=== PATIENT | female | born 1960 | race Hispanic/Latino ===

== ENCOUNTER 2024-04-13 18:48 | Emergency (ER) | payer OTHER ==
--- OUTSIDE RECORDS SUMMARY | 2024-04-13 18:53 | XMS REPORT | Continuity of Care Document ---
Author Name Unknown Address [address] [facility] [place] [address] [facility] thconnect Address [address] 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 Name Role Phone Carlos Loza Primary Care Physician RODNEY MONGE Attending Clinician Unavailable JANET SEWELL Attending Clinician Unavailable JOHN SANCHEZ Attending Clinician Unavailable LAB47 Attending Clinician Unavailable CONY RYAN Attending Clinician Unav ailable LAB90 Attending Clinician Unavailable REJI FORBES Attending Clinician Unavailable LAB45 Attending Clinician Unavailable JOAQUIN GALLOWAY Attending Clinician Unavailable BETZY JOHNSON Attending Clinician Unavailable CARLENE CHILDRESS Attending Clinician Unavailable JONO GONCALVES Attending Clinician Unavailable MD ALICIA Attending Clinician UnavailYARIEL Mancuso Attending Clinician Unavailable MONIQUE CALLEJAS MEDICAL Attending Colt hampton Unavailable CONFERENCE, BDC Attending Clinician Unavailable RADIOLOGY, DEPT Attending Clinician Unavailable TOMOGRAPHY, FBMDC OPTICAL COHERENCE Attending Cl inician Unavailable Davar_P Attending Clinician Unavailable Omar Coulter Attending Clinician Unavaila ble Fields_C Attending Clinician Unavailable Yordan_BRETT Attending Clinician Unavailable Davar_P Admitting Clinician Unavailable Omar Coulter Admitting Clinician Unavaila ble Fields_C Admitting Clinician Unavailable Ciara_Dinah_BRETT Admitting Clinician Unavailable Payers Payer Name Policy Type Policy Number Effective Date Expirati on Date Source AETISIDRO MP [facility] [employer] 94 [place] 9 [id number] 2023 00:00:00 TRISTIN DURAN FROM [facility] ([facility]) [id number] [place]HMO[place] [id number] 2018 00:00:00 Problems Condition Name Condition Details Condition Category Status Onset Date Resolution Date Last Treatment Date Treating Clinician Comments Source Thyroid nodule Thyroid Nodule Problem Active 04-01 00:00: 00 [facility] Osteoporos is Osteoporos is Problem Active 04-01 00:00: 00 [facility] Well adult exam Well adult exam Disease Active 2023-02 00:00: 00 Monique Negronold - Externa l Overweight (BMI 25.0-29.9) Overweight (BMI 25.0-29.9) Disease Active 2023-02 00:00: 00 Moinque Negronold - Externa l Chronic bilateral low back pain without sciatica Chronic bilateral low back pain without sciatica Disease Active 2023-02 0 00:00: 00 Monique Negronold - Externa l Neuropathy Neuropathy Disease Active -15 00:00: 00 Monique Seybold - Externa l 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) Disease Active 8-15 00:00: 00 Monique Negronold - Externa l Multiple thyroid nodules Multiple thyroid nodules Disease Active 4-10 00:00: 00 Monique Negronold - Externa l Polyarthri tis Polyarthri tis Disease Active -16 00:00: 00 Monique Seybold - Externa l Fibromyalg ia Fibromyalg ia Disease Active 04-27 00:00: 00 Monique Negronold - Externa l Personal history of immunosupr ession therapy Personal history of immunosupr ession therapy Disease Active 04-27 00:00: 00 Monique Negronold - Externa l Primary osteoarthr itis of both knees Primary osteoarthr itis of both knees Disease Active 04-27 00:00: 00 Monique Seybold - Externa l Plantar fascial fibromatos is Plantar fascial fibromatos is Disease Active -16 00:00: 00 Monique Negronold - Externa melida Osteoporos is Osteoporos is Disease Active 04-20 00:00: 00 Monique Smithybold - Externa l Rheumatoid arthritis (multi HCC) Rheumatoid arthritis (multi HCC) Disease Active 04-20 00:00: 00 Moniqeu Negronold - Externa l Age-relate d osteoporos is without current pathologic al fracture Age-relate d osteoporos is without current pathologic al fracture Disease Active 04-20 00:00: 00 Monique Negronold - Externa l Mixed hyperlipid emia Mixed hyperlipid emia Disease Active 04-20 00:00: 00 Monique Smithybold - Externa l Hypothyroi dism Hypothyroi dism Disease Active 04-20 00:00: 00 Monique Negronold - Externa l Rheumatoid arthritis Rheumatoid Arthritis Problem Active 18 00:00: 00 [facility] Hypothyroi dism Hypothyroi dism Problem Active 02-26 00:00: 00 [facility] Mixed hyperlipid emia Mixed Hyperlipid emia Problem Active 02-26 00:00: 00 [facility] Prediabete s Prediabete s Disease Active Monique Galindo - Externa melida Allergies, Adverse Reactions, Alerts Allergy Name Allergy Type Status Severity Reaction(s) Onset Date Inactive Date Treating Clinician Comments Source Penicill ins Propensi ty to adverse reaction s Active Hives 04-20 00:00: 00 Monique Galindo - Externa melida Penicill ins - CLASS Propensi ty to adverse reaction to drug Active 08-30 00:00: 00 [place] - Intraven ous Propensi ty to adverse reaction to drug Active 08-17 00:00: 00 Penicill ins Propensi ty to adverse reaction to drug Active 04-18 00:00: 00 PENICILL INS Allergy to substanc e Active Moderate to severe Rash [facility] Social History Social Habit Start Date Stop Date Quantity Comments Source ASSERTION Not Monique Galindo - External History of Occupation Monique Galindo - External Gender identity Anna Galindo - External Sexual orientation Live Galindo - External Alcoholic beverage intake 2024-01-25 00:00:00 2024-01-25 00:00:00 Lifetime non-drinker (finding) Monique Galindo - External Education 2023-09-27 00:00:00 2023-09-27 00:00:00 6 Monique Galindo - External Alcohol intake 2023-05-16 00:00:00 2023-05-16 00:00:00 Lifetime non-drinker (finding) Monique Galindo - External History of Social function 2023-01-29 00:00:00 2023-01-29 00:00:00 Monique Galindo - External Tobacco use and exposure 2022-04-20 00:00:00 2022-04-20 00:00:00 Smokeless tobacco non-user Monique Galindo - External Sex 2022-03-02 13:31:21 2022-03-02 13:31:21 Female (finding) Monique Galindo - External Sex assigned at 1960 00:00:00 1960 00:00:00 Monique Galindo - External Smoking Status Start Date Stop Date Source Never smoked tobacco Monique Galindo - External Medications Ordered Medication Name Filled Medication Name Start Date Stop Date Current Medication? Ordering Clinician Indication Dosage Frequency Signature (SIG) Comments Components Source Adalimumab (Humira, 2 Syringe,) 40 MG/0.4ML subcutaneou s Prefilled Syringe Kit (Citrate-fr ee) 2023-02 09:23: 43 Yes 404 40mg Inject 40 mg into the skin every 14 days. Indication s: Rheumatoid Arthritis Monique Galindo - Externa l Adalimumab (Humira, 2 Syringe,) 40 MG/0.4ML subcutaneou s Prefilled Syringe Kit (Citrate-fr ee) 2023-02 09:29: 43 Yes 404 40mg Inject 40 mg into the skin every 14 days. Indication s: Rheumatoid Arthritis Monique Galindo - Externa l Cholecalcif antonio (Vitamin D) 25 MCG (1000 UT) oral Tablet 2023-02 00:00: 00 Yes [id number] 25U QD Take 25 units by mouth daily. Monique montez Cholecalcif antonio (Vitamin D) 25 MCG (1000 UT) oral Tablet -19 00:00: 00 12-10 00:00 :00 No [id number] 25U QD Take 25 units by mouth daily. Monique montez Methylpredn isolone Acetate (DEPO-MEDRO L) 40 mg/mL 07-26 14:30: 00 07-26 17:48 :00 No [id number] 40mg 40 mg, injection, ONCE, 1 dose, On Sun07/27/23 at 0930 Monique montez Adalimumab (Humira) 40 MG/0.4ML subcutaneou s Prefilled Syringe Kit (Citrate-fr ee) 05-08 13:14: 29 05-08 00:00 :00 No 40mg Inject 40 mg into the skin. Monique montez Humira, 2 Pen, 40 MG/0.4ML subcutaneou s Pen-injecto r Kit (Citrate-fr ee) 04-23 00:00: 00 12-10 00:00 :00 No Monique montez Atorvastati n Calcium 10 MG oral Tablet 04-18 00:00: 00 Yes [id number] 10mg QD Take 1 tablet (10 mg total) by mouth daily. Monique montez Levothyroxi ne Sodium 75 MCG oral Tablet 04-18 00:00: 00 Yes [id number] 75ug QD Take 1 tablet (75 mcg total) by mouth daily. Monique montez predniSONE (DELTASONE) 20 MG oral tablet 04-16 11:09: 44 04-16 00:00 :00 No 20mg Take 1 tablet (20 mg total) by mouth daily. Monique montez Adalimumab (Humira) 40 MG/0.4ML subcutaneou s Prefilled Syringe Kit (Citrate-fr ee) 04-04 08:19: 44 Yes 40mg Inject 40 mg into the skin. Monique montez predniSONE (DELTASONE) 20 MG oral tablet 04-04 08:19: 44 Yes 20mg Take 1 tablet (20 mg total) by mouth daily. Monique montez Adalimumab (Humira) 40 MG/0.4ML subcutaneou s Prefilled Syringe Kit (Citrate-fr ee) 03-27 08:23: 32 Yes 40mg Inject 40 mg into the skin. Monique montez predniSONE (DELTASONE) 20 MG oral tablet 03-27 08:23: 32 Yes 20mg Take 1 tablet (20 mg total) by mouth daily. Monique montez Diclofenac Sodium 75 MG oral Tablet Delayed Response 02-14 00:00: 00 09-26 00:00 :00 No 75mg Q.5D Take 1 tablet (75 mg total) by mouth 2 times daily as needed. Monique montez Adalimumab (Humira) 40 MG/0.4ML subcutaneou s Prefilled Syringe Kit (Citrate-fr ee) 2022-02 14:45: 03 Yes 40mg Inject 40 mg into the skin. Monique montez predniSONE (DELTASONE) 20 MG oral tablet 2022-02 14:45: 03 Yes 20mg Take 1 tablet (20 mg total) by mouth daily. Monique montez Tizanidine HCl 4 MG oral Tablet 2022-02 00:00: 00 09-26 00:00 :00 No [id number] 9100 4mg QD Take 1 tablet (4 mg total) by mouth nightly. Monique montez Adalimumab (Humira) 40 MG/0.4ML subcutaneou s Prefilled Syringe Kit (Citrate-fr ee) 08-17 09:46: 11 Yes 40mg Inject 40 mg into the skin Monique montez Na Sulfate-K Sulfate-Mg Sulf (SUPREP BOWEL PREP KIT) 17.5-3.13-1 .6 GM/177ML oral Solution 08-17 00:00: 00 Yes [id number] Instructio ns provided to patient. Follow instructio ns provided by provider. Monique montez Adalimumab (Humira) 40 MG/0.4ML subcutaneou s Prefilled Syringe Kit (Citrate-fr ee) 08-01 08:48: 21 Yes 40mg Inject 40 mg into the skin Monique montez TRIMETHOPRI M-SULFAMETH OXAZOLE (BACTRIM DS) 800-160 MG oral Tablet 08-01 00:00: 00 Yes [id number] 1{tbl} Take 1 tablet by mouth 2 times daily Monique montez Meloxicam 15 MG oral Tablet 08-01 00:00: 00 09-26 00:00 :00 No [id number] 15mg QD Take 1 tablet (15 mg total) by mouth daily As needed for pain. Take with meal. Monique montez Ciprofloxac in HCl (Cipro) 250 MG oral Tablet 06-15 00:00: 00 08-01 00:00 :00 No [id number] 250mg Take 1 tablet (250 mg total) by mouth 2 times daily Monique montez Adalimumab (Humira) 40 MG/0.4ML subcutaneou s Prefilled Syringe Kit (Citrate-fr ee) 04-25 13:09: 24 Yes 40mg Inject 40 mg into the skin Monique montez Levothyroxi ne Sodium (Unithroid) 75 MCG oral Tablet 04-20 09:55: 55 04-20 00:00 :00 No 75ug Take 75 mcg by mouth daily Monique montez Atorvastati n Calcium 10 MG oral Tablet 04-20 09:55: 31 04-20 00:00 :00 No 10mg Take 10 mg by mouth daily Monique montez Alendronate Sodium 70 MG oral Tablet 04-20 09:55: 16 04-20 00:00 :00 No 70mg Take 70 mg by mouth every 7 days Monique montez Adalimumab (Humira) 40 MG/0.4ML subcutaneou s Prefilled Syringe Kit (Citrate-fr ee) 04-20 09:27: 22 Yes 40mg Inject 40 mg into the skin Monique montez Atorvastati n Calcium 10 MG oral Tablet 04-20 00:00: 00 Yes [id number] 10mg Take 1 tablet (10 mg total) by mouth daily Monique montez Levothyroxi ne Sodium (Unithroid) 75 MCG oral Tablet 04-20 00:00: 00 Yes [id number] 75ug Take 1 tablet (75 mcg total) by mouth daily Monique montez Alendronate Sodium 70 MG oral Tablet 04-20 00:00: 00 09-26 00:00 :00 No [id number] 70mg Take 1 tablet (70 mg total) by mouth every 7 days Monique montez Dose Unknown 2021-02 00:00: 00 No TAKE ONE (1) TABLET(S) BY MOUTH ONCE WEEKLY WITH PLAIN WATER. TAKE 30 MINUTES BEFORE FIRST FOOD, BEVERAGE, OR OTHER MEDICINE OF THE DAY. 11-09 00:00: 00 No Dose Unknown 10-09 00:00: 00 No TAKE ONE (1) TABLET(S) BY MOUTH ONCE WEEKLY WITH PLAIN WATER. TAKE 30 MINUTES BEFORE FIRST FOOD, BEVERAGE, OR OTHER MEDICINE OF THE DAY. 10-09 00:00: 00 No 70 Dose Unknown 10-09 00:00: 00 No TAKE ONE (1) TABLET(S) BY MOUTH ONCE WEEKLY WITH PLAIN WATER. TAKE 30 MINUTES BEFORE FIRST FOOD, BEVERAGE, OR OTHER MEDICINE OF THE DAY. 10-09 00:00: 00 No 70 Dose Unknown 10-09 00:00: 00 No TAKE ONE (1) TABLET(S) BY MOUTH ONCE WEEKLY WITH PLAIN WATER. TAKE 30 MINUTES BEFORE FIRST FOOD, BEVERAGE, OR OTHER MEDICINE OF THE DAY. 10-09 00:00: 00 No 70 1x a week 09-19 00:00: 00 No 7075 1x a week 09-19 00:00: 00 No 7075 1x a week 09-19 00:00: 00 No 7075 inject 1 pen every 14 days 08-30 00:00: 00 No 4004 inject 1 pen every 14 days 0 08-30 00:00: 00 No 4004 inject 1 pen every 14 days 0 08-30 00:00: 00 No 4004 inject 1 pen every 14 days 0 08-30 00:00: 00 No 4004 Humira(CF) 40 mg/0.4 mL subcutaneou s syringe kit 0 08-17 00:00: 00 No mg/0.4 mL alendronate 70 mg tablet 0 08-17 00:00: 00 No 1mg inject 1 pen every 14 days 0 08-17 00:00: 00 No 4004 1x a week 0 08-17 00:00: 00 No 7075 Humira(CF) 40 mg/0.4 mL subcutaneou s syringe kit 08-17 00:00: 00 No mg/0.4 mL alendronate 70 mg tablet 0 08-17 00:00: 00 No 1mg inject 1 pen every 14 days 0 08-17 00:00: 00 No 4004 1x a week 0 08-17 00:00: 00 No 7075 Humira(CF) 40 mg/0.4 mL subcutaneou s syringe kit 08-17 00:00: 00 No mg/0.4 mL alendronate 70 mg tablet 0 08-17 00:00: 00 No 1mg inject 1 pen every 14 days 0 08-17 00:00: 00 No 4004 1x a week 0 08-17 00:00: 00 No 7075 Humira(CF) 40 mg/0.4 mL subcutaneou s syringe kit 08-17 00:00: 00 No mg/0.4 mL alendronate 70 mg tablet 0 08-17 00:00: 00 No 1mg inject 1 pen every 14 days 0 08-17 00:00: 00 No 4004 1x a week 0 08-17 00:00: 00 No 7075 Dose Unknown 0 3-16 00:00: 00 No Dose Unknown 0 3-16 00:00: 00 No Dose Unknown 0 3-16 00:00: 00 No Dose Unknown 04-27 00:00: 00 No Dose Unknown 04-27 00:00: 00 No Vitamin D3 25 mcg (1,000 unit) capsule 04-20 00:00: 00 No 1(1,000 unit) Vitamin D3 25 mcg (1,000 unit) capsule 04-20 00:00: 00 No 1(1,000 unit) Vitamin D3 25 mcg (1,000 unit) capsule 04-20 00:00: 00 No 1(1,000 unit) Vitamin D3 25 mcg (1,000 unit) capsule 04-20 00:00: 00 No 1(1,000 unit) Vitamin D3 25 mcg (1,000 unit) capsule 04-20 00:00: 00 No 1(1,000 unit) Dose Unknown 04-18 00:00: 00 No Cimzia 400 mg/2 mL (200 mg/mL x 2) subcutaneou s syringe kit 04-18 00:00: 00 No 1(200 mg/mL x 2) sulfamethox azole 800 mg-trimetho prim 160 mg tablet 04-18 00:00: 00 No 1mg atorvastati n 10 mg tablet 04-18 00:00: 00 No 1mg levothyroxi ne 75 mcg capsule 04-18 00:00: 00 No 1mcg Dose Unknown 04-18 00:00: 00 No Dose Unknown 04-18 00:00: 00 No Dose Unknown 04-18 00:00: 00 No Cimzia 400 mg/2 mL (200 mg/mL x 2) subcutaneou s syringe kit 04-18 00:00: 00 No 1(200 mg/mL x 2) sulfamethox azole 800 mg-trimetho prim 160 mg tablet 04-18 00:00: 00 No 1mg atorvastati n 10 mg tablet 04-18 00:00: 00 No 1mg levothyroxi ne 75 mcg capsule 04-18 00:00: 00 No 1mcg Cimzia 400 mg/2 mL (200 mg/mL x 2) subcutaneou s syringe kit 04-18 00:00: 00 No 1(200 mg/mL x 2) sulfamethox azole 800 mg-trimetho prim 160 mg tablet 04-18 00:00: 00 No 1mg atorvastati n 10 mg tablet 04-18 00:00: 00 No 1mg levothyroxi ne 75 mcg capsule 04-18 00:00: 00 No 1mcg Cimzia 400 mg/2 mL (200 mg/mL x 2) subcutaneou s syringe kit 04-18 00:00: 00 No 1(200 mg/mL x 2) sulfamethox azole 800 mg-trimetho prim 160 mg tablet 04-18 00:00: 00 No 1mg atorvastati n 10 mg tablet 04-18 00:00: 00 No 1mg levothyroxi ne 75 mcg capsule 04-18 00:00: 00 No 1mcg gabapentin 100 mg capsule TAKE ONE (1) CAPSULE(S) BY MOUTH AT BEDTIME. gabapentin 100 mg capsule TAKE ONE (1) CAPSULE(S) BY MOUTH AT BEDTIME. No gabapentin 100 mg capsule TAKE ONE (1) CAPSULE(S) BY MOUTH AT BEDTIME. [facility] Humira 40 mg/0.8 mL subcutaneou s syringe kit Inject 0.8 mL every 2 weeks by subcutaneou s route. Humira 40 mg/0.8 mL subcutaneou s syringe kit Inject 0.8 mL every 2 weeks by subcutaneou s route. No .8mL Q2W Humira 40 mg/0.8 mL subcutaneo us syringe kit Inject 0.8 mL every 2 weeks by subcutaneo us route. [facility] raloxifene 60 mg tablet TAKE ONE (1) TABLET(S) BY MOUTH ONCE A DAY. raloxifene 60 mg tablet TAKE ONE (1) TABLET(S) BY MOUTH ONCE A DAY. No raloxifene 60 mg tablet TAKE ONE (1) TABLET(S) BY MOUTH ONCE A DAY. [facility] terbinafine HCl 250 mg tablet TAKE ONE (1) TABLET(S) BY MOUTH ONCE A DAY. terbinafine HCl 250 mg tablet TAKE ONE (1) TABLET(S) BY MOUTH ONCE A DAY. No terbinafin e HCl 250 mg tablet TAKE ONE (1) TABLET(S) BY MOUTH ONCE A DAY. [facility] e Immunizations Ordered Immunization Name Filled Immunization Name Date Status Comments Source Pneumococcal Vaccine, Polysaccharide 2022-04-20 00:00:00 Completed Monique Seybold - External Pneumococcal Vaccine, Polysaccharide 2022-04-20 00:00:00 Completed Monique Seybold - External Pneumococcal Vaccine, Polysaccharide 2022-04-20 00:00:00 Completed Monique Seybold - External Pneumococcal Vaccine, Polysaccharide 2022-04-20 00:00:00 Completed Monique Seybold - External Influenza Virus Vaccine, age 6 months and up 2021-11-12 00:00:00 Completed Monique Seybold - External Influenza Virus Vaccine, age 6 months and 2021-11-12 00:00:00 Completed Monique Seybold - External Influenza Virus Vaccine, age 6 months and up 2021-11-12 00:00:00 Completed Monique Seybold - External Influenza Virus Vaccine, age 6 months and 2021-11-12 00:00:00 Completed Monique Seybold - External Influenza Virus Vaccine, age 6 months and 2021-02-12 00:00:00 Completed Monique Seybold - External Influenza Virus Vaccine, age 6 months and 2021-02-12 00:00:00 Completed Monique Seybold - External Influenza Virus Vaccine, age 6 months and up 2021-02-12 00:00:00 Completed Monique Seybold - External Influenza Virus Vaccine, age 6 months and 2021-02-12 00:00:00 Completed Monique Seybold - External COVID-19 (SARS-COV-2) vaccine, unspecified COVID-19 (SARS-COV-2) vaccine, unspecified 2020-05-07 00:00:00 Completed [facility] influenza, injectable, quadrivalent, preservative free influenza, injectable, quadrivalent, preservative free 2019-01-27 18:10:00 Completed [facility] Influenza Virus Vaccine, No Preserv, age 6 months and up 2019-01-27 00:00:00 Completed [facility] - External Tdap Tdap Unknown Completed [facility] zoster recombinant zoster recombinant Unknown Completed [facility] pneumococcal polysaccharide PPV23 pneumococcal polysaccharide PPV23 Unknown Completed [facility] Influenza Virus Vaccine, age 6 months and up Unknown Completed Monique Seybold - External Pneumococcal Vaccine, Polysaccharide Unknown Completed Monique Seybold - External Influenza Virus Vaccine, No Preserv, age 6 months and up Unknown Completed Monique Seybold - External Influenza Virus Vaccine, age 6 months and up Unknown Completed Monique Seybold - External Pneumococcal Vaccine, Polysaccharide Unknown Completed Monique Seybold - External Influenza Virus Vaccine, No Preserv, age 6 months and up Unknown Completed Monique Seybold - External Influenza Virus Vaccine, age 6 months and up Unknown Completed Monique Seybold - External Pneumococcal Vaccine, Polysaccharide Unknown Completed Monique Seybold - External Influenza Virus Vaccine, No Preserv, age 6 months and up Unknown Completed Monique Seybold - External Influenza Virus Vaccine, age 6 months and up Unknown Completed Monique Seybold - External Pneumococcal Vaccine, Polysaccharide Unknown Completed Monique Seybold - External Influenza Virus Vaccine, No Preserv, age 6 months and up Unknown Completed Monique Seybold - External Influenza Virus Vaccine, age 6 months and up Unknown Completed Monique Seybold - External Pneumococcal Vaccine, Polysaccharide Unknown Completed Monique Seybold - External Influenza Virus Vaccine, No Preserv, age 6 months and up Unknown Completed Monique Seybold - External Influenza Virus Vaccine, age 6 months and up Unknown Completed Monique Seybold - External Pneumococcal Vaccine, Polysaccharide Unknown Completed Monique Seybold - External Influenza Virus Vaccine, No Preserv, age 6 months and up Unknown Completed Monique Seybold - External Influenza Virus Vaccine, age 6 months and up Unknown Completed Monique Seybold - External Pneumococcal Vaccine, Polysaccharide Unknown Completed Monique Seybold - External Influenza Virus Vaccine, No Preserv, age 6 months and up Unknown Completed Monique Seybold - External Influenza Virus Vaccine, age 6 months and up Unknown Completed Monique Seybold - External Pneumococcal Vaccine, Polysaccharide Unknown Completed Monique Seybold - External Influenza Virus Vaccine, No Preserv, age 6 months and up Unknown Completed Monique Seybold - External Influenza Virus Vaccine, age 6 months and up Unknown Completed Monique Seybold - External Pneumococcal Vaccine, Polysaccharide Unknown Completed Monique Seybold - External Influenza Virus Vaccine, No Preserv, age 6 months and up Unknown Completed Monique Seybold - External Influenza Virus Vaccine, age 6 months and up Unknown Completed Monique Seybold - External Pneumococcal Vaccine, Polysaccharide Unknown Completed Monique Seybold - External Influenza Virus Vaccine, No Preserv, age 6 months and up Unknown Completed Monique Seybold - External Influenza Virus Vaccine, age 6 months and up Unknown Completed Monique Seybold - External Pneumococcal Vaccine, Polysaccharide Unknown Completed Monique Seybold - External Influenza Virus Vaccine, No Preserv, age 6 months and up Unknown Completed Monique Seybold - External Influenza Virus Vaccine, age 6 months and up Unknown Completed Monique Seybold - External Pneumococcal Vaccine, Polysaccharide Unknown Completed Monique Seybold - External Influenza Virus Vaccine, No Preserv, age 6 months and up Unknown Completed Monique Seybold - External AFLURIA TRIVALENT MDV Unknown Completed Monique Seybold - External Influenza Virus Vaccine, age 6 months and up Unknown Completed Monique Seybold - External Pneumococcal Vaccine, Polysaccharide Unknown Completed Monique Seybold - External Influenza Virus Vaccine, No Preserv, age 6 months and up Unknown Completed Monique Seybold - External AFLURIA TRIVALENT MDV Unknown Completed Monique Seybold - External Vital Signs Vital Name Observation Time Observation Value Comments S ource Body Weight 2024-04-01 00:00:00 184.7 [lb_av] [facility] BP Systolic 2024-04-01 00:00:00 131 mm[Hg] [facility] Height 2024-04-01 00:00:00 67 [in_i] [facility] BP Diastolic 2024-04-01 00:00:00 91 mm[Hg] [facility] BMI (Body Mass Index) 2024-04-01 00:00:00 28.9 kg/m2 [facility] Body weight 2024-01-25 15:23:00 87.091 kg Anna ey Seybold - External BMI 2024-01-25 15:23:00 29.19 kg/m2 Anna ey Seybold - External Systolic blood pressure 2023-12-11 14:16:00 130 mm[Hg] Monique Negrono ld - External Diastolic blood pressure 2023-12-11 14:16:00 82 mm[Hg] Monique Negrono ld - External Heart rate 2023-12-11 14:16:00 66 /min Odell y Seybold - External Body temperature 2023-12-11 14:16:00 36.78 Tamera Monique Seybold - External Respiratory rate 2023-12-11 14:16:00 16 /min Monique Seybold - External Body height 2023-12-11 14:16:00 172.7 cm Anna ey Seybold - External Body weight 2023-12-11 14:16:00 86.637 kg Anna ey Seybold - External BMI 2023-12-11 14:16:00 29.04 kg/m2 Anna ey Seybold - External Oxygen saturation in Arterial blood by Pulse oximetry 2023-12-11 14:16:00 100 /min Monique Seybo ld - External Body height 2023-10-26 14:02:00 172.7 cm Anna ey Seybold - External Body weight 2023-10-26 14:02:00 84.369 kg Anna ey Seybold - External BMI 2023-10-26 14:02:00 28.28 kg/m2 Nana ey Seybold - External Systolic blood pressure 2023-09-27 16:04:00 134 mm[Hg] Monique Seybo ld - External Diastolic blood pressure 2023-09-27 16:04:00 89 mm[Hg] Monique Smithybo ld - External Heart rate 2023-09-27 16:04:00 75 /min Odell greenberg Seybold - External Body temperature 2023-09-27 16:04:00 36.72 Tamera Monique Seybold - External Respiratory rate 2023-09-27 16:04:00 16 /min Monique Seybold - External Body height 2023-09-27 16:04:00 172.7 cm Anna ey Seybold - External Body weight 2023-09-27 16:04:00 84.369 kg Anna ey Seybold - External BMI 2023-09-27 16:04:00 28.28 kg/m2 Anna ey Seybold - External Oxygen saturation in Arterial blood by Pulse oximetry 2023-09-27 16:04:00 100 /min Monique Smithybo ld - External Body height 2023-07-27 13:59:00 172.7 cm Anna ey Seybold - External Body weight 2023-07-27 13:59:00 83.008 kg Anna ey Seybold - External BMI 2023-07-27 13:59:00 27.83 kg/m2 Anna ey Seybold - External Body height 2023-06-12 14:43:00 172.7 cm Anna ey Seybold - External Body weight 2023-06-12 14:43:00 83.008 kg Anna ey Seybold - External BMI 2023-06-12 14:43:00 27.83 kg/m2 Anna ey Seybold - External Systolic blood pressure 2023-05-23 14:19:00 118 mm[Hg] Monique Seybo ld - External Diastolic blood pressure 2023-05-23 14:19:00 76 mm[Hg] Monique Seybo ld - External Heart rate 2023-05-23 14:19:00 64 /min Kelse y Seybold - External Body temperature 2023-05-23 14:19:00 36.22 Tamera Monique Seybold - External Respiratory rate 2023-05-23 14:19:00 18 /min Monique Seybold - External Body height 2023-05-23 14:19:00 172.7 cm Anna ey Seybold - External Body weight 2023-05-23 14:19:00 83.734 kg Anna ey Seybold - External BMI 2023-05-23 14:19:00 28.07 kg/m2 Anna ey Seybold - External Systolic blood pressure 2023-03-27 14:22:00 130 mm[Hg] Monique Seybo ld - External Diastolic blood pressure 2023-03-27 14:22:00 86 mm[Hg] Monique Seybo ld - External Heart rate 2023-03-27 14:22:00 73 /min Kelse y Seybold - External Body temperature 2023-03-27 14:22:00 36.33 Tamera Monique Seybold - External Respiratory rate 2023-03-27 14:22:00 18 /min Monique Seybold - External Body weight 2023-03-27 14:22:00 84.823 kg Anna ey Seybold - External BMI 2023-03-27 14:22:00 28.43 kg/m2 Anna ey Seybold - External Oxygen saturation in Arterial blood by Pulse oximetry 2023-03-27 14:22:00 96 /min Monique Negrono ld - External Systolic blood pressure 2023-01-29 20:40:00 120 mm[Hg] Monique Smithybo ld - External Diastolic blood pressure 2023-01-29 20:40:00 80 mm[Hg] Monqiue Smithybo ld - External Heart rate 2023-01-29 20:40:00 64 /min Kelse y Seybold - External Body temperature 2023-01-29 20:40:00 36.44 Tamera Monique Seybold - External Respiratory rate 2023-01-29 20:40:00 18 /min Monique Seybold - External Body height 2023-01-29 20:40:00 172.7 cm Anna ey Seybold - External Body weight 2023-01-29 20:40:00 84.823 kg Anna ey Seybold - External BMI 2023-01-29 20:40:00 28.43 kg/m2 Anna ey Seybold - External Oxygen saturation in Arterial blood by Pulse oximetry 2023-01-29 20:40:00 99 /min Monique Smithybo ld - External Systolic blood pressure 2022-08-17 14:51:00 120 mm[Hg] Monique Smithybo ld - External Diastolic blood pressure 2022-08-17 14:51:00 82 mm[Hg] Monique Smithybo ld - External Heart rate 2022-08-17 14:51:00 63 /min Dellse y Seybold - External Body temperature 2022-08-17 14:51:00 36 Tamera Monique Seybold - External Respiratory rate 2022-08-17 14:51:00 16 /min Monique Seybold - External Body height 2022-08-17 14:51:00 172.7 cm Anna ey Seybold - External Body weight 2022-08-17 14:51:00 82.555 kg Anna ey Seybold - External BMI 2022-08-17 14:51:00 27.67 kg/m2 Anna ey Seybold - External Body weight 2022-08-01 13:51:00 82.101 kg Anna ey Seybold - External BMI 2022-08-01 13:51:00 27.52 kg/m2 Anna ey Seybold - External Systolic blood pressure 2022-08-01 13:51:00 132 mm[Hg] Monique Seybo ld - External Diastolic blood pressure 2022-08-01 13:51:00 78 mm[Hg] Monique Seybo ld - External Heart rate 2022-08-01 13:51:00 84 /min Kelse y Seybold - External Body temperature 2022-08-01 13:51:00 36.89 Tamera Monique Seybold - External Respiratory rate 2022-08-01 13:51:00 16 /min Monique Seybold - External Body height 2022-08-01 13:51:00 172.7 cm Anna ey Seybold - External Systolic blood pressure 2022-04-20 15:27:00 110 mm[Hg] Monique Seybo ld - External Diastolic blood pressure 2022-04-20 15:27:00 80 mm[Hg] Monique Seybo ld - External Heart rate 2022-04-20 15:27:00 72 /min Kelse y Seybold - External Body temperature 2022-04-20 15:27:00 36.61 Tamera Monique Seybold - External Respiratory rate 2022-04-20 15:27:00 18 /min Monique Seybold - External Body height 2022-04-20 15:27:00 172.7 cm Anna ey Seybold - External Body weight 2022-04-20 15:27:00 82.555 kg Anna ey Seybold - External BMI 2022-04-20 15:27:00 27.67 kg/m2 Anna ey Seybold - External Oxygen saturation in Arterial blood by Pulse oximetry 2022-04-20 15:27:00 98 /min Monique Seybo ld - External BP Diastolic 2020-09-02 00:00:00 86 mm[Hg] [facility] Height 2020-09-02 00:00:00 68 [in_i] [facility] BMI (Body Mass Index) 2020-09-02 00:00:00 28.1 kg/m2 [facility] BP Systolic 2020-09-02 00:00:00 120 mm[Hg] [facility] Weight 2020-09-02 00:00:00 184.6 [lb_av] [facility] BMI (Body Mass Index) 2019-01-27 00:00:00 26.9 kg/m2 [facility] BP Systolic 2019-01-27 00:00:00 148 mm[Hg] [facility] Body Weight 2019-01-27 00:00:00 177 [lb_av] [facility] BP Diastolic 2019-01-27 00:00:00 97 mm[Hg] [facility] Height 2019-01-27 00:00:00 68 [in_i] [facility] BP Systolic 2022-01-12 08:00:00 132 mm[Hg] BP Diastolic 2022-01-12 08:00:00 94 mm[Hg] Weight Measured 2022-01-12 08:00:00 183.00 pounds Height Measured 2022-01-12 08:00:00 66.00 inches Body Temperature 2022-01-12 08:00:00 97.40 degrees Heart Rate 2022-01-12 08:00:00 101.00 /min Respiratory Rate 2022-01-12 08:00:00 BP Systolic 2021-10-26 17:35:00 115 mm[Hg] BP Diastolic 2021-10-26 17:35:00 78 mm[Hg] Weight Measured 2021-10-26 17:35:00 185.80 pounds Height Measured 2021-10-26 17:35:00 66.00 inches Body Temperature 2021-10-26 17:35:00 97.90 degrees Heart Rate 2021-10-26 17:35:00 62.00 /min Respiratory Rate 2021-10-26 17:35:00 21.00 /min BP Systolic 2021-10-09 10:27:00 BP Diastolic 2021-10-09 10:27:00 Weight Measured 2021-10-09 10:27:00 185.00 pounds Height Measured 2021-10-09 10:27:00 66.00 inches Body Temperature 2021-10-09 10:27:00 Heart Rate 2021-10-09 10:27:00 Respiratory Rate 2021-10-09 10:27:00 BP Systolic 2021-08-30 17:25:00 129 mm[Hg] BP Diastolic 2021-08-30 17:25:00 76 mm[Hg] Weight Measured 2021-08-30 17:25:00 185.60 pounds Height Measured 2021-08-30 17:25:00 66.00 inches Body Temperature 2021-08-30 17:25:00 97.30 degrees Heart Rate 2021-08-30 17:25:00 72.00 /min Respiratory Rate 2021-08-30 17:25:00 21.00 /min BP Systolic 2021-08-17 08:06:00 128 mm[Hg] BP Diastolic 2021-08-17 08:06:00 86 mm[Hg] Weight Measured 2021-08-17 08:06:00 184.60 pounds Height Measured 2021-08-17 08:06:00 66.00 inches Body Temperature 2021-08-17 08:06:00 98.60 degrees Heart Rate 2021-08-17 08:06:00 74.00 /min Respiratory Rate 2021-08-17 08:06:00 BP Systolic 2021-04-27 10:18:00 129 mm[Hg] BP Diastolic 2021-04-27 10:18:00 88 mm[Hg] Weight Measured 2021-04-27 10:18:00 179.20 pounds Height Measured 2021-04-27 10:18:00 66.00 inches Body Temperature 2021-04-27 10:18:00 97.40 degrees Heart Rate 2021-04-27 10:18:00 73.00 /min Respiratory Rate 2021-04-27 10:18:00 BP Systolic 2021-04-18 16:26:00 143 mm[Hg] BP Diastolic 2021-04-18 16:26:00 88 mm[Hg] Weight Measured 2021-04-18 16:26:00 184.20 pounds Height Measured 2021-04-18 16:26:00 66.00 inches Body Temperature 2021-04-18 16:26:00 97.30 degrees Heart Rate 2021-04-18 16:26:00 68.00 /min Respiratory Rate 2021-04-18 16:26:00 Procedures Procedure Date / Time Performed Performing Clinician Source DEXA, axial skeleton 2024-04-01 00:00:00 [facility] MAMMO, diagnostic, digital, bilateral 2024-04-01 00:00:00 [facility] US, breast, unilateral 2024-04-01 00:00:00 [facility] US, thyroid 2024-04-01 00:00:00 [facility] CERVICAL SPINE - 2 VIEW 2023-03-27 16:11:15 Reilly Forbes Seybold - External LUMBAR SPINE 2 VIEWS 2023-01-29 21:12:45 Joaquin Galloway Seybold - External Colonoscopy 2022-12-01 00:00:00 [facility] MAMMO, screening, digital, bilateral 2020-09-02 00:00:00 [facility] Incision of Thyroid 2015-04-12 00:00:00 [facility] Subtotal Thyroidectomy [facility] Plan of Care Planned Activity Planned Date Details Comments Source Goal Plan of Care Note [code = 43394-8] Goal Plan of Care Note [code = 30011-2] Goal Plan of Care Note [code = 65717-7] Goal Plan of Care Note [code = 26095-2] Goal Plan of Care Note [code = 60951-1] Goal Plan of Care Note [code = 19869-3] Goal Plan of Care Note [code = 46379-5] Goal Plan of Care Note [code = 57372-9] Goal Plan of Care Note [code = 93920-1] Goal Plan of Care Note [code = 23173-7] Goal Plan of Care Note [code = 43273-2] Goal Plan of Care Note [code = 24190-5] Goal Plan of Care Note [code = 56362-2] Goal Plan of Care Note [code = 89903-0] Goal Plan of Care Note [code = 32767-7] Goal Plan of Care Note [code = 18766-7] Goal Plan of Care Note [code = 34044-7] Goal Plan of Care Note [code = 02511-9] Goal Plan of Care Note [code = 34046-6] Goal Plan of Care Note [code = 91572-9] Goal Plan of Care Note [code = 03240-0] Goal Plan of Care Note [code = 62057-1] Goal Plan of Care Note [code = 56450-1] Goal Plan of Care Note [code = 61495-3] Goal Plan of Care Note [code = 51646-7] Goal Plan of Care Note [code = 06114-8] Goal Plan of Care Note [code = 88023-7] Goal Plan of Care Note [code = 84062-8] Goal Plan of Care Note [code = 77642-9] Goal Plan of Care Note [code = 53150-4] Goal Plan of Care Note [code = 76994-2] Goal Plan of Care Note [code = 24432-1] Goal Plan of Care Note [code = 63976-0] Goal Plan of Care Note [code = 59584-0] Goal Plan of Care Note [code = 52029-3] Goal Plan of Care Note [code = 00827-7] Goal Plan of Care Note [code = 58954-8] Goal Plan of Care Note [code = 38579-8] Goal Plan of Care Note [code = 39922-7] Goal Plan of Care Note [code = 04070-3] Goal Plan of Care Note [code = 93838-8] Goal Plan of Care Note [code = 75727-6] Goal Plan of Care Note [code = 05285-3] Goal Plan of Care Note [code = 07637-3] Goal Plan of Care Note [code = 91111-4] Goal Plan of Care Note [code = 11912-7] Goal Plan of Care Note [code = 90996-2] Goal Plan of Care Note [code = 77699-1] Goal Plan of Care Note [code = 84093-9] Goal Plan of Care Note [code = 51404-4] Goal Plan of Care Note [code = 85860-1] Goal Plan of Care Note [code = 72474-6] Goal Plan of Care Note [code = 74616-6] Goal Plan of Care Note [code = 15790-9] Goal Plan of Care Note [code = 28209-5] Goal Plan of Care Note [code = 94282-0] Goal Plan of Care Note [code = 83517-9] Goal Plan of Care Note [code = 04442-6] Goal Plan of Care Note [code = 17580-7] Goal Plan of Care Note [code = 32409-4] Goal Plan of Care Note [code = 67932-6] Goal Plan of Care Note [code = 91179-0] Goal Plan of Care Note [code = 94625-8] Goal Plan of Care Note [code = 42305-6] Goal Plan of Care Note [code = 79212-2] Goal Plan of Care Note [code = 16301-4] Goal Plan of Care Note [code = 82460-9] Goal Plan of Care Note [code = 26282-0] Goal Plan of Care Note [code = 14495-2] Goal Plan of Care Note [code = 35665-4] Goal Plan of Care Note [code = 41102-5] Goal Plan of Care Note [code = 18628-3] Goal Plan of Care Note [code = 66119-5] Goal Plan of Care Note [code = 07904-8] Goal Plan of Care Note [code = 53057-9] Goal Plan of Care Note [code = 26255-7] Goal Plan of Care Note [code = 10339-6] Goal Plan of Care Note [code = 66724-2] Goal Plan of Care Note [code = 91357-6] Goal Plan of Care Note [code = 62769-8] Goal Plan of Care Note [code = 63969-5] Goal Plan of Care Note [code = 99390-4] Goal Plan of Care Note [code = 36615-2] Goal Plan of Care Note [code = 38466-2] Goal Plan of Care Note [code = 96892-1] Goal Plan of Care Note [code = 84403-9] Encounters Start Date/Time End Date/Time Encounter Type Admission Type Attending [facility] Care Department Encounter ID Source 2024-05-13 10:45:00 2024-05-13 10:45:00 Outpatient [facility]ODNEY MON[facility] [id number] [facility] 2024-04-25 09:40:00 2024-04-25 09:40:00 Outpatient JANET SEWELL [id number] Monique [facility] 2024-04-17 15:30:00 2024-04-17 15:30:00 Outpatient [facility] [id number] [facility]-17 14:30:00 2024-04-17 14:30:00 Outpatient MONIQUE SOOD [id number] Monique eveline 2024-04-17 13:00:00 2024-04-17 13:00:00 Outpatient MONIQUE SOOD [id number] Monique Galindo 2024-04-16 07:15:00 2024-04-16 07:15:00 Outpatient MONIQUE SOOD [id number] Monique Galindo 2024-04-11 09:30:00 2024-04-11 09:30:00 Outpatient JOHN SANCHEZ MONIQUE SOOD [id number] Monique Galindo 2024-04-01 00:00:00 2024-04-01 00:00:00 [place], [place]: [address], [address], [place] [address] , Ph. [facility] - [place] - VM_HOU_Shad Lime [id number] [facility] 2024-03-12 00:00:00 2024-03-12 00:00:00 Outpatient JOHN SANCHEZ MONIQUE SOOD [id number] Monique Galindo 2024-03-10 00:00:00 2024-03-10 00:00:00 Outpatient JOHN SANCHEZ MONIQUE [id number] Monique Galindo 2024-03-06 09:15:00 2024-03-06 09:15:00 Outpatient MONIQUE SOOD [id number] Monique Josie 2024-03-06 09:15:00 2024-03-06 09:15:00 Outpatient MONIQUE SOOD [id number] Monique Josie 2024-03-05 15:00:00 2024-03-05 15:00:00 Outpatient MONIQUE SOOD [id number] Monique Josie 2024-03-05 13:20:00 2024-03-05 13:20:00 Outpatient MONIQUE SOOD [id number] Monique [facility]is 2024-01-25 10:10:00 2024-01-25 10:10:00 Outpatient MONIQUE SOOD [id number] Monique Galindo 2024-01-25 10:05:00 2024-01-25 10:05:00 Outpatient LAB MONIQUE SOOD [id number] Monique Galindo 2024-01-25 09:40:00 2024-01-25 09:40:00 Outpatient JANET SEWELL MONIQUE SOOD [id number] Monique [facility] 2024-01-23 00:00:00 2024-01-23 00:00:00 Outpatient MONIQUE SOOD [id number] Monique [facility] 2024-01-23 00:00:00 2024-01-23 00:00:00 Outpatient SHELBYCONY MONIQUE SOOD [id number] [facility] 2024-01-11 00:00:00 2024-01-11 00:00:00 Outpatient PREZAJOHN Thakkar MONIQUE SOOD [id number] [facility] 2023-12-11 10:15:00 2023-12-11 10:15:00 Outpatient LAB90 MONIQUE SOOD [id number] [facility] 2023-12-11 09:30:00 2023-12-11 09:30:00 Outpatient PREZAS, JOHN MONIQUE SOOD [id number] [facility] 2023-10-26 09:40:00 2023-10-26 09:40:00 Outpatient DONATOJANET MONIQUE SOOD [id number] [facility] 2023-10-01 00:00:00 2023-10-01 00:00:00 Outpatient SEWELLJANET MONIQUE SOOD [id number] [facility] 2023-10-01 00:00:00 2023-10-01 00:00:00 Outpatient PREZASJOHN MONIQUE SOOD [id number] [facility] 2023-09-28 08:55:00 2023-09-28 08:55:00 Outpatient LAB90 MONIQUE SOOD [id number] Monique Seybold 2023-09-27 11:15:00 2023-09-27 11:15:00 Outpatient PREZASJOHN MONIQUE SOOD [id number] [facility] 2023-07-27 09:00:00 2023-07-27 09:00:00 Outpatient JANET SEWELL [id number] [facility] 2023-07-27 08:10:00 2023-07-27 08:10:00 Outpatient MONIQUE SOOD [id number] Monique Seybold 2023-07-23 00:00:00 2023-07-23 00:00:00 Outpatient JANET SEWELL MONIQUE SOOD [id number] Monique [facility] 2023-06-12 10:30:00 2023-06-12 10:30:00 Outpatient REJI FORBES MONIQUE SOOD [id number] Monique [facility] 2023-05-23 11:00:00 2023-05-23 11:00:00 Outpatient AYAZ OMNIQUE SOOD [id number] Monique Seybold 2023-05-23 10:15:00 2023-05-23 10:15:00 Outpatient RODNEY MONGE MONIQUE SOOD [id number] Monique [facility] 2023-05-16 09:30:00 2023-05-16 09:30:00 Outpatient ANDREI REJI MONIQUE SOOD [id number] Monique [facility] 2023-05-09 13:15:00 2023-05-09 13:15:00 Outpatient REJI FORBES [id number] Monique Seybold 2023-05-04 09:20:00 2023-05-04 09:20:00 Outpatient JANET SEWELL MONIQUE SOOD [id number] Monique Seybold 2023-05-01 10:30:00 2023-05-01 10:30:00 Outpatient FORBES, REJI MONIQUE SOOD [id number] Monique Seybold 2023-04-24 09:15:00 2023-04-24 09:15:00 Outpatient ANDREI, REJI SOOD [id number] Monique Seybold 2023-04-19 00:00:00 2023-04-19 00:00:00 Outpatient LAVERNEJOAQUIN MONIQUE SOOD [id number] Monique Seybold 2023-04-17 11:15:00 2023-04-17 11:15:00 Outpatient ANDREI, REJI SOOD [id number] Monique Seybold 2023-04-04 08:15:00 2023-04-04 08:15:00 Outpatient ANDREI, REJI SOOD [id number] Monique Seybold 2023-03-27 10:00:00 2023-03-27 10:00:00 Outpatient MONIQUE SOOD [id number] Monique Seybold 2023-03-27 09:30:00 2023-03-27 09:30:00 Outpatient REJI FORBES [id number] Monique Seybold 2023-03-22 15:00:00 2023-03-22 15:00:00 Outpatient BETZY JOHNSON MONIQUE SOOD [id number] Monique Seybold 2023-03-21 00:00:00 2023-03-21 00:00:00 Outpatient CARLENE CHILDRESS MONIQUE SOOD [id number] Monique Seybold 2023-03-08 08:00:00 2023-03-08 08:00:00 Outpatient RODNEY MONGE MONIQUE SOOD [id number] [facility] 2023-03-07 09:45:00 2023-03-07 09:45:00 Outpatient REJI FORBES [id number] [facility] 2023-02-08 16:00:00 2023-02-08 16:00:00 Outpatient ELISSA GONCALVESRA MONIQUE SOOD [id number] Monique Seybold 2023-01-30 00:00:00 2023-01-30 00:00:00 Outpatient MD MONIQUE GIVENS [id number] Monique Seybold 2023-01-29 15:05:00 2023-01-29 15:05:00 Outpatient MONIQUE SOOD [id number] Monique Seybold 2023-01-29 15:00:00 2023-01-29 15:00:00 Outpatient JOAQUIN GALLOWAY [id number] Monique Seybold 2022-12-01 07:00:00 2022-12-01 07:00:00 Outpatient YARIEL FRANCO [id number] Monique Seybold 2022-11-29 00:00:00 2022-11-29 00:00:00 Outpatient MD MONIQUE GIVNES [id number] Monique [facility] 2022-11-29 00:00:00 2022-11-29 00:00:00 Outpatient YARIEL FRANCO [id number] [facility] 2022-11-29 00:00:00 2022-11-29 00:00:00 Outpatient MD MONIQUE GIVENS [id number] Monique [facility] 2022-11-15 09:30:00 2022-11-15 09:30:00 Outpatient RODNEY MONGE MONIQUE SOOD [id number] Monique [facility] 2022-10-17 00:00:00 2022-10-17 00:00:00 Outpatient MONIQUE CALLEJAS [id number] [facility] 2022-08-17 11:30:00 2022-08-17 11:30:00 Outpatient YARIEL FRANCO [id number] [facility] 2022-08-17 00:00:00 2022-08-17 00:00:00 Outpatient MONIQUE SOOD [id number] Monique eveline 2022-08-01 10:00:00 2022-08-01 10:00:00 Outpatient CARLENE CHILDRESS [id number] [facility] 2022-06-30 00:00:00 2022-06-30 00:00:00 Outpatient MD OMNIQUE GIVENS [id number] Monique [facility] 2022-06-22 10:30:00 2022-06-22 10:30:00 Outpatient MONIQUE SOOD [id number] Monique Galindo 2022-06-22 09:40:00 2022-06-22 09:40:00 Outpatient MONIQUE SOOD [id number] Monique Galindo 2022-06-16 08:40:00 2022-06-16 08:40:00 Outpatient LAB90 MONIQUE SOOD [id number] Monique Galindo 2022-06-16 00:00:00 2022-06-16 00:00:00 Outpatient JOAQUIN GALLOWAY [id number] Monique Seeveline 2022-06-16 00:00:00 2022-06-16 00:00:00 Outpatient [facility] MONIQUE SOOD [id number] Monique Galindo 2022-06-15 13:00:00 2022-06-15 13:00:00 Outpatient MONIQUE SOOD [id number] [facility] 2022-06-15 11:10:00 2022-06-15 11:10:00 Outpatient LAB45 MONIQUE SOOD [id number] Monique [facility] 2022-06-15 00:00:00 2022-06-15 00:00:00 Outpatient LAVERNE, JOAQUIN MONIQUE SOOD [id number] Monique [facility] 2022-06-15 00:00:00 2022-06-15 00:00:00 Outpatient LAVERNE, JOAQUIN MONIQUE SOOD [id number] Monique [facility] 2022-05-24 10:45:00 2022-05-24 10:45:00 Outpatient MONIQUE SOOD [id number] Monique [facility] 2022-05-24 00:00:00 2022-05-24 00:00:00 Outpatient LAVERNE, JOAQUIN [facility] [id number] [facility] 2022-05-24 00:00:00 2022-05-24 00:00:00 Outpatient RADIOLOGY, DEPT MONIQUE SOOD [id number] Monique [facility] 2022-05-17 00:00:00 2022-05-17 00:00:00 Outpatient LAVERNE, JOAQUIN MONIQUE SOOD [id number] [facility] 2022-05-15 00:00:00 2022-05-15 00:00:00 Outpatient LAVERNE, JOAQUIN MONIQUE SOOD [id number] Monique [facility] 2022-05-11 12:30:00 2022-05-11 12:30:00 Outpatient MONIQUE SOOD [id number] [facility] 2022-05-11 11:40:00 2022-05-11 11:40:00 Outpatient MONIQUE SOOD [id number] Mon[facility] 2022-05-11 11:00:00 2022-05-11 11:00:00 Outpatient MONIQUE SOOD [id number] Mon[facility] 2022-05-11 09:55:00 2022-05-11 09:55:00 Outpatient LAB45 MONIQUE SOOD [id number] Mon[facility] 2022-04-25 13:20:00 2022-04-25 13:20:00 Outpatient JONO GONCALVES [id number] Monique [facility] 2022-04-25 13:20:00 2022-04-25 13:20:00 Outpatient TOMOGRAPHY, FBMDC MONIQUE SOOD [id number] Monique [facility] 2022-04-20 09:15:00 2022-04-20 09:15:00 Outpatient JOAQUIN GALLOWAY [id number] [facility] 2022-01-25 08:01:37 2022-01-25 08:01:37 Outpatient SFA SFA [id number] Angel Johnson 2022-01-12 08:41:37 2022-01-12 08:41:37 Outpatient SFA SFA [id number] Angel Johnson 2022-01-12 00:00:00 2022-01-12 00:00:00 Outpatient Visit [id number] 2021-10-26 00:00:00 2021-10-26 00:00:00 Outpatient Visit [id number] 2021-10-09 00:00:00 2021-10-09 00:00:00 Outpatient Visit [id number] 2021-08-30 00:00:00 2021-08-30 00:00:00 Outpatient Visit [id number] 2021-08-17 00:00:00 2021-08-17 00:00:00 Outpatient Visit [id number] 2021-02-23 04:04:00 2021-02-23 04:04:00 Outpatient Davar_P VFP VFP [id number] [facility] 2020-12-03 12:00:00 2020-12-03 12:00:00 Outpatient Lise Pruitt [facility] [id number] [facility] 2020-09-07 07:58:00 2020-09-07 07:58:00 Outpatient Fields_C VFP VFP [id number] [facility] 2020-09-07 07:58:00 2020-09-07 07:58:00 Outpatient Saldaña-Gor_M_ WAG VFP VFP [id number] [facility] 2020-09-02 03:59:00 2020-09-02 03:59:00 Outpatient Saldaña-Gor_M_ WAG VFP VFP [id number] [facility] 2020-09-02 00:00:00 2020-09-02 00:00:00 Prakash [place] MD: [address] [place] [phone] , Ph. VFP [place] - [facility] - VM_HOU_[facility] ([place]) [id number] [facility] 2019-06-15 04:53:00 2019-06-15 04:53:00 Outpatient Saldaña-Gor_M_ WAG VFP VFP [id number] [facility] 2019-04-25 11:48:00 2019-04-25 11:48:00 Outpatient Fields_C VFP VFP [id number] [facility] 2019-04-25 11:48:00 2019-04-25 11:48:00 Outpatient Fields_C VFP VFP [id number] [facility] 2019-04-25 11:48:00 2019-04-25 11:48:00 Outpatient Fields_C VFP VFP [id number] [facility] 2019-04-25 11:48:00 2019-04-25 11:48:00 Outpatient Fields_C VFP VFP [id number] [facility] 2019-04-23 04:38:00 2019-04-23 04:38:00 Outpatient Ciara_M_ WAG VFP VFP [id number] [facility] 2019-03-19 07:37:00 2019-03-19 07:37:00 Outpatient Piotr-Yousif_M_ WAG VFP VFP [id number] [facility] 2019-02-12 06:50:00 2019-02-12 06:50:00 Outpatient Fields_C VFP VFP [id number] [facility] 2019-01-27 00:00:00 2019-01-27 00:00:00 Ivelisse Urbina MD: [address] [place] [address], [address], [place] [address] , Ph. VFP [place] - [facility] - _HOU_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 Monique Galindo - External HEMOGLOBIN [id number] 05:06:55* Test Item Value Reference Range Interpretation Comme [facility] HEMOGLOBIN A1c (test code = 17777) 5.9 % 4.2-5.6 H VITAMIN D, 25 [id number] 04:42:57* Test Item Value Reference Range Interpretation Comme [facility] VITAMIN D, 25 OH (test code = 4958) 17 NG/ML SEE BELOW L NOTE: 25-HYDR OXYVITAMIN D ASSAY INCLUDES 25-HYDROXYVITAMIN D2 AND D3. METHODOLOGY IS CHEMILUMINESCENT IMMUNOASSAY. INTERPRETIVE RANGES PEDIATRIC (<17 YEARS) . . . . . . . . . . . NG/ML 20-100ADULT: INSUFFICIENT . . . . . . . . . . . . . . NG/ML <20 SUBOPTIMAL . . . . . . . . . . . . . . . NG/ML 20-29 OPTIMAL . . . . . . . . . . . . . . . . . NG/ML 30-100 UNLESS OTHERWISE INDICATED, ALL TESTING PERFORMED [facility] [employer] [address] [place] [id number] LEVEL VIAL INSPECTOR AND TESTER: JACI JENKINS M.D. [place] NUMBER [id number] [facility] [place]. [id number] LIPID [id number] 02:25:07* Test Item Value Reference Range Interpretation Comme nts CHOLESTEROL (test code = 2210) 203 MG/DL <200 H TRIGLYCERIDES (test code = 2232) 79 MG/DL <150 HDL CHOLESTEROL (test code = 2220) 57 MG/DL >39 CALC LDL CHOL (test code = 2237) 128 MG/DL <100 H NOTE: CALCULATED LDL IS BASED ON [place] METHOD WHICHINCLUDES ADJUSTABLE TRIGLYCERIDE:VLDL CHOLESTEROL RATIO.THIS FACTOR VARIES BY MEASURED TRIGLYCERIDE AND NON-HDLCHOLESTEROL CONCENTRATIONS WITH INCREASED CALCULATED LDL SEENIN HIGHER TRIGLYCERIDE OR LOWER NON-HDL SPECIMENS. FOR MOREINFORMATION, SEE CLIENT ANNOUNCEMENT AT [email or web address] RISK RATIO LDL/HDL (test code = 2238) 2.25 RATIO <3.22 COMPREHENSIVE METABOLIC [id number] 02:25:07* Test Item Value Reference Range Interpretation Comme nts GLUCOSE (test code = 2217) 95 MG/DL 70-99 BUN (test code = 2208) 16 MG/DL 8-23 CREATININE (test code = 2214) 0.68 MG/DL 0.60-1.30 eGFR (2020 CKD-EPI) (test code = 45379) 98 ML/MIN/1.73 >60 CALC BUN/CREAT (test code = 2235) 24 RATIO 6-28 SODIUM (test code = 223) 146 MEQ/L 133-146 POTASSIUM (test code = 2228) 4.9 MEQ/L 3.5-5.4 CHLORIDE (test code = 2215) 106 MEQ/L 95-107 CARBON DIOXIDE (test code = 2206) 28 MEQ/L 19-31 CALCIUM (test code = 2209) 9.6 MG/DL 8.5-10.5 PROTEIN, TOTAL (test code = 2228) 7.3 G/DL 6.1-8.3 ALBUMIN (test code = 2200) 4.7 G/DL 3.5-5.2 CALC GLOBULIN (test code = 2240) 2.6 G/DL 1.9-3.7 CALC A/G RATIO (test code = 2233) 1.8 RATIO 1.0-2.6 BILIRUBIN, TOTAL (test code = 2206) 0.5 MG/DL See_Comment [Automated me ssage] The system which generated this result transmitted reference range: <=1.2. The reference range was not used to interpret this result as normal/abnormal. ALKALINE PHOSPHATASE (test code = 2203) 86 U/L 40-140 AST (test code = 2217) 16 U/L 9-40 ALT (test code = 2218) 16 U/L 5-40 TSH, THIRD [id number] 06:50:50* Test Item Value Reference Range Interpretation Comme nts TSH, THIRD GENERATION (test code = 2821) 1.130 UIU/ML 0.400-4.100 UNLESS OTHERWISE INDICATED, ALL TESTING PERFORMED [facility] [address] [place] [address] LEVEL VIAL INSPECTOR AND TESTER: JACI JENKINS M.D. CLIA NUMBER [id number] [facility] [place] [place]. [id number] LIPID [id number] 05:59:29* Test Item Value Reference Range Interpretation Comme nts CHOLESTEROL (test code = 2209) 219 MG/DL <200 H TRIGLYCERIDES (test code = 2231) 104 MG/DL <150 HDL CHOLESTEROL (test code = 2220) 60 MG/DL >39 CALC LDL CHOL (test code = 2237) 138 MG/DL <100 H NOTE: CALCULATED LDL IS BASED ON [place] METHOD WHICHINCLUDES ADJUSTABLE TRIGLYCERIDE:VLDL CHOLESTEROL RATIO.THIS FACTOR VARIES BY MEASURED TRIGLYCERIDE AND NON-HDLCHOLESTEROL CONCENTRATIONS WITH INCREASED CALCULATED LDL SEENIN HIGHER TRIGLYCERIDE OR LOWER NON-HDL SPECIMENS. FOR MOREINFORMATION, SEE CLIENT ANNOUNCEMENT AT [email or web address] [email or web address] RATIO LDL/HDL (test code = 2237) 2.30 RATIO <3.22 HEMOGLOBIN [id number] 04:29:57* Test Item Value Reference Range Interpretation Comme nts HEMOGLOBIN A1c (test code = 31884) 6.0 % 4.2-5.6 H LIPID [id number] 00:00:00* Test Item Value Reference Range Interpretation Comme nts CHOLESTEROL (test code = 2210) 219 MG/DL TRIGLYCERIDES (test code = 2232) 104 MG/DL HDL CHOLESTEROL (test code = 2220) 60 MG/DL CALC LDL CHOL (test code = 2237) 138 MG/DL RISK RATIO LDL/HDL (test cod e = 2238) 2.30 RATIO HEMOGLOBIN [id number] 00:00:00* Test Item Value Reference Range Interpretation Comme nts HEMOGLOBIN A1c (test code = 63941) 6.0 % TSH, THIRD [id number] 00:00:00* Test Item Value Reference Range Interpretation Comme nts TSH, THIRD GENERATION (test code = 2821) 1.130 UIU/ML LIPID [id number] 00:00:00* Test Item Value Reference Range Interpretation Comme nts CHOLESTEROL (test code = 2210) 219 MG/DL TRIGLYCERIDES (test code = 2232) 104 MG/DL HDL CHOLESTEROL (test code = 2220) 60 MG/DL CALC LDL CHOL (test code = 2237) 138 MG/DL RISK RATIO LDL/HDL (test cod e = 2238) 2.30 RATIO HEMOGLOBIN [id number] 00:00:00* Test Item Value Reference Range Interpretation Comme nts HEMOGLOBIN A1c (test code = 62831) 6.0 % TSH, THIRD [id number] 00:00:00* Test Item Value Reference Range Interpretation Comme nts TSH, THIRD GENERATION (test code = 2821) 1.130 UIU/ML COMPREHENSIVE METABOLIC [id number] 00:00:00* Test Item Value Reference Range Interpretation Comme nts GLUCOSE (test code = 2217) 104 MG/DL BUN (test code = 2208) 13 MG/DL CREATININE (test code = 2214) 0.75 MG/DL eGFR (2020 CKD-EPI) (test co de = 44535) 90 ML/MIN/1.73 CALC BUN/CREAT (test code = 2235) 17 RATIO SODIUM (test code = 2231) 145 MEQ/L POTASSIUM (test code = 2228) 5.2 MEQ/L CHLORIDE (test code = 2215) 103 MEQ/L CARBON DIOXIDE (test code = 2206) 26 MEQ/L CALCIUM (test code = 2209) 9.6 MG/DL PROTEIN, TOTAL (test code = 2229) 8.2 G/DL ALBUMIN (test code = 2201) 4.8 G/DL CALC GLOBULIN (test code = 2240) 3.4 G/DL CALC A/G RATIO (test code = 2234) 1.4 RATIO BILIRUBIN, TOTAL (test code = 2207) 0.4 MG/DL ALKALINE PHOSPHATASE (test code = 2204) 97 U/L AST (test code = 2218) 18 U/L ALT (test code = 2219) 16 U/L LIPID [id number] 00:00:00* Test Item Value Reference Range Interpretation Comme nts CHOLESTEROL (test code = 2210) 234 MG/DL TRIGLYCERIDES (test code = 2232) 90 MG/DL HDL CHOLESTEROL (test code = 2220) 66 MG/DL CALC LDL CHOL (test code = 2237) 148 MG/DL RISK RATIO LDL/HDL (test cod e = 2238) 2.24 RATIO CBC W/AUTO [id number] 00:00:00* Test Item Value Reference Range Interpretation Comme nts WBC (test code = 1001) 6.4 K/UL RBC (test code = 1002) 5.36 M/UL HEMOGLOBIN (test code = 1003) 15.5 G/DL HEMATOCRIT (test code = 1004) 47.0 % MCV (test code = 1005) 87.7 fL MCH (test code = 1006) 28.9 PG MCHC (test code = 1007) 33.0 G/DL RDW (test code = 1038) 13.1 % NEUTROPHILS (test code = 1008) 66.2 % LYMPHOCYTES (test code = 1010) 23.5 % MONOCYTES (test code = 1011) 7.4 % EOSINOPHILS (test code = 1012) 1.9 % BASOPHILS (test code = 1013) 0.5 % IMMATURE GRANULOCYTES (test code = 1036) 0.5 % NUCLEATED RBCS (test code = 1065) 0.0 /100WBC'S PLATELET COUNT (test code = 1015) 175 K/UL ABSOLUTE NEUTROPHILS (test c ode = 1066) 4.22 K/UL ABSOLUTE LYMPHOCYTES (test c ode = 1067) 1.50 K/UL ABSOLUTE MONOCYTES (test cod e = 1068) 0.47 K/UL ABSOLUTE EOSINOPHILS (test c ode = 1040) 0.12 K/UL ABSOLUTE BASOPHILS (test cod e = 1069) 0.03 K/UL ABS IMMATURE GRANULOCYTES (t est code = 1020) 0.03 K/UL ABS NUCLEATED RBCS (test cod e = 45466) 0.00 K/UL VITAMIN D, 25 [id number] 00:00:00* Test Item Value Reference Range Interpretation Comme nts VITAMIN D, 25 OH (test code = 4958) 21 NG/ML [id number] 00:00:00* Test Item Value Reference Range Interpretation Comme [facility] TSH, THIRD GENERATION (test code = 2821) 2.690 UIU/ML HEMOGLOBIN [id number] 00:00:00* Test Item Value Reference Range Interpretation Comme [facility] HEMOGLOBIN A1c (test code = 90413) 5.9 % COMPREHENSIVE METABOLIC [id number] 00:00:00* Test Item Value Reference Range Interpretation Comme nts GLUCOSE (test code = 2217) 104 MG/DL BUN (test code = 2208) 13 MG/DL CREATININE (test code = 2214) 0.75 MG/DL eGFR (2020 CKD-EPI) (test co de = 88921) 90 ML/MIN/1.73 CALC BUN/CREAT (test code = 2235) 17 RATIO SODIUM (test code = 2231) 145 MEQ/L POTASSIUM (test code = 2228) 5.2 MEQ/L CHLORIDE (test code = 2215) 103 MEQ/L CARBON DIOXIDE (test code = 2206) 26 MEQ/L CALCIUM (test code = 2209) 9.6 MG/DL PROTEIN, TOTAL (test code = 2229) 8.2 G/DL ALBUMIN (test code = 2201) 4.8 G/DL CALC GLOBULIN (test code = 2240) 3.4 G/DL CALC A/G RATIO (test code = 2234) 1.4 RATIO BILIRUBIN, TOTAL (test code = 2207) 0.4 MG/DL ALKALINE PHOSPHATASE (test code = 2204) 97 U/L AST (test code = 2218) 18 U/L ALT (test code = 2219) 16 U/L LIPID [id number] 00:00:00* Test Item Value Reference Range Interpretation Comme nts CHOLESTEROL (test code = 2210) 234 MG/DL TRIGLYCERIDES (test code = 2232) 90 MG/DL HDL CHOLESTEROL (test code = 2220) 66 MG/DL CALC LDL CHOL (test code = 2237) 148 MG/DL RISK RATIO LDL/HDL (test cod e = 2238) 2.24 RATIO CBC W/AUTO [id number] 00:00:00* Test Item Value Reference Range Interpretation Comme nts WBC (test code = 1001) 6.4 K/UL RBC (test code = 1002) 5.36 M/UL HEMOGLOBIN (test code = 1003) 15.5 G/DL HEMATOCRIT (test code = 1004) 47.0 % MCV (test code = 1005) 87.7 fL MCH (test code = 1006) 28.9 PG MCHC (test code = 1007) 33.0 G/DL RDW (test code = 1038) 13.1 % NEUTROPHILS (test code = 1008) 66.2 % LYMPHOCYTES (test code = 1010) 23.5 % MONOCYTES (test code = 1011) 7.4 % EOSINOPHILS (test code = 1012) 1.9 % BASOPHILS (test code = 1013) 0.5 % IMMATURE GRANULOCYTES (test code = 1036) 0.5 % NUCLEATED RBCS (test code = 1065) 0.0 /100WBC'S PLATELET COUNT (test code = 1015) 175 K/UL ABSOLUTE NEUTROPHILS (test c ode = 1066) 4.22 K/UL ABSOLUTE LYMPHOCYTES (test c ode = 1067) 1.50 K/UL ABSOLUTE MONOCYTES (test cod e = 1068) 0.47 K/UL ABSOLUTE EOSINOPHILS (test c ode = 1040) 0.12 K/UL ABSOLUTE BASOPHILS (test cod e = 1069) 0.03 K/UL ABS IMMATURE GRANULOCYTES (t est code = 1020) 0.03 K/UL ABS NUCLEATED RBCS (test cod e = 89715) 0.00 K/UL VITAMIN D, 25 [id number] 00:00:00* Test Item Value Reference Range Interpretation Comme nts VITAMIN D, 25 OH (test code = 4958) 21 NG/ML [id number] 00:00:00* Test Item Value Reference Range Interpretation Comme nts TSH, THIRD GENERATION (test code = 2821) 2.690 UIU/ML HEMOGLOBIN [id number] 00:00:00* Test Item Value Reference Range Interpretation Comme nts HEMOGLOBIN A1c (test code = 07879) 5.9 % COMPREHENSIVE METABOLIC [id number] 00:00:00* Test Item Value Reference Range Interpretation Comme nts GLUCOSE (test code = 2217) 104 MG/DL BUN (test code = 2208) 13 MG/DL CREATININE (test code = 2214) 0.75 MG/DL eGFR (2020 CKD-EPI) (test co de = 05593) 90 ML/MIN/1.73 CALC BUN/CREAT (test code = 2235) 17 RATIO SODIUM (test code = 2231) 145 MEQ/L POTASSIUM (test code = 2228) 5.2 MEQ/L CHLORIDE (test code = 2215) 103 MEQ/L CARBON DIOXIDE (test code = 2206) 26 MEQ/L CALCIUM (test code = 2209) 9.6 MG/DL PROTEIN, TOTAL (test code = 2229) 8.2 G/DL ALBUMIN (test code = 2201) 4.8 G/DL CALC GLOBULIN (test code = 2240) 3.4 G/DL CALC A/G RATIO (test code = 2234) 1.4 RATIO BILIRUBIN, TOTAL (test code = 2207) 0.4 MG/DL ALKALINE PHOSPHATASE (test code = 2204) 97 U/L AST (test code = 2218) 18 U/L ALT (test code = 2219) 16 U/L LIPID [id number] 00:00:00* Test Item Value Reference Range Interpretation Comme nts CHOLESTEROL (test code = 2210) 234 MG/DL TRIGLYCERIDES (test code = 2232) 90 MG/DL HDL CHOLESTEROL (test code = 2220) 66 MG/DL CALC LDL CHOL (test code = 2237) 148 MG/DL RISK RATIO LDL/HDL (test cod e = 2238) 2.24 RATIO CBC W/AUTO [id number] 00:00:00* Test Item Value Reference Range Interpretation Comme nts WBC (test code = 1001) 6.4 K/UL RBC (test code = 1002) 5.36 M/UL HEMOGLOBIN (test code = 1003) 15.5 G/DL HEMATOCRIT (test code = 1004) 47.0 % MCV (test code = 1005) 87.7 fL MCH (test code = 1006) 28.9 PG MCHC (test code = 1007) 33.0 G/DL RDW (test code = 1038) 13.1 % NEUTROPHILS (test code = 1008) 66.2 % LYMPHOCYTES (test code = 1010) 23.5 % MONOCYTES (test code = 1011) 7.4 % EOSINOPHILS (test code = 1012) 1.9 % BASOPHILS (test code = 1013) 0.5 % IMMATURE GRANULOCYTES (test code = 1036) 0.5 % NUCLEATED RBCS (test code = 1065) 0.0 /100WBC'S PLATELET COUNT (test code = 1015) 175 K/UL ABSOLUTE NEUTROPHILS (test c ode = 1066) 4.22 K/UL ABSOLUTE LYMPHOCYTES (test c ode = 1067) 1.50 K/UL ABSOLUTE MONOCYTES (test cod e = 1068) 0.47 K/UL ABSOLUTE EOSINOPHILS (test c ode = 1040) 0.12 K/UL ABSOLUTE BASOPHILS (test cod e = 1069) 0.03 K/UL ABS IMMATURE GRANULOCYTES (t est code = 1020) 0.03 K/UL ABS NUCLEATED RBCS (test cod e = 07691) 0.00 K/UL VITAMIN D, 25 [id number] 00:00:00* Test Item Value Reference Range Interpretation Comme [facility] VITAMIN D, 25 OH (test code = 4958) 21 NG/ML [id number] 00:00:00* Test Item Value Reference Range Interpretation Comme [facility] TSH, THIRD GENERATION (test code = 2821) 2.690 UIU/ML HEMOGLOBIN [id number] 00:00:00* Test Item Value Reference Range Interpretation Comme nts HEMOGLOBIN A1c (test code = 94719) 5.9 % COMPREHENSIVE METABOLIC [id number] 00:00:00* Test Item Value Reference Range Interpretation Comme nts GLUCOSE (test code = 2217) 104 MG/DL BUN (test code = 2208) 13 MG/DL CREATININE (test code = 2214) 0.75 MG/DL eGFR (2020 CKD-EPI) (test co de = 06410) 90 ML/MIN/1.73 CALC BUN/CREAT (test code = 2235) 17 RATIO SODIUM (test code = 2231) 145 MEQ/L POTASSIUM (test code = 2228) 5.2 MEQ/L CHLORIDE (test code = 2215) 103 MEQ/L CARBON DIOXIDE (test code = 2206) 26 MEQ/L CALCIUM (test code = 2209) 9.6 MG/DL PROTEIN, TOTAL (test code = 2229) 8.2 G/DL ALBUMIN (test code = 2201) 4.8 G/DL CALC GLOBULIN (test code = 2240) 3.4 G/DL CALC A/G RATIO (test code = 2234) 1.4 RATIO BILIRUBIN, TOTAL (test code = 2207) 0.4 MG/DL ALKALINE PHOSPHATASE (test code = 2204) 97 U/L AST (test code = 2218) 18 U/L ALT (test code = 2219) 16 U/L LIPID [id number] 00:00:00* Test Item Value Reference Range Interpretation Comme nts CHOLESTEROL (test code = 2210) 234 MG/DL TRIGLYCERIDES (test code = 2232) 90 MG/DL HDL CHOLESTEROL (test code = 2220) 66 MG/DL CALC LDL CHOL (test code = 2237) 148 MG/DL RISK RATIO LDL/HDL (test cod e = 2238) 2.24 RATIO CBC W/AUTO [id number] 00:00:00* Test Item Value Reference Range Interpretation Comme nts WBC (test code = 1001) 6.4 K/UL RBC (test code = 1002) 5.36 M/UL HEMOGLOBIN (test code = 1003) 15.5 G/DL HEMATOCRIT (test code = 1004) 47.0 % MCV (test code = 1005) 87.7 fL MCH (test code = 1006) 28.9 PG MCHC (test code = 1007) 33.0 G/DL RDW (test code = 1038) 13.1 % NEUTROPHILS (test code = 1008) 66.2 % LYMPHOCYTES (test code = 1010) 23.5 % MONOCYTES (test code = 1011) 7.4 % EOSINOPHILS (test code = 1012) 1.9 % BASOPHILS (test code = 1013) 0.5 % IMMATURE GRANULOCYTES (test code = 1036) 0.5 % NUCLEATED RBCS (test code = 1065) 0.0 /100WBC'S PLATELET COUNT (test code = 1015) 175 K/UL ABSOLUTE NEUTROPHILS (test c ode = 1066) 4.22 K/UL ABSOLUTE LYMPHOCYTES (test c ode = 1067) 1.50 K/UL ABSOLUTE MONOCYTES (test cod e = 1068) 0.47 K/UL ABSOLUTE EOSINOPHILS (test c ode = 1040) 0.12 K/UL ABSOLUTE BASOPHILS (test cod e = 1069) 0.03 K/UL ABS IMMATURE GRANULOCYTES (t est code = 1020) 0.03 K/UL ABS NUCLEATED RBCS (test cod e = 79804) 0.00 K/UL VITAMIN D, 25 [id number] 00:00:00* Test Item Value Reference Range Interpretation Comme nts VITAMIN D, 25 OH (test code = 4958) 21 NG/ML [id number] 00:00:00* Test Item Value Reference Range Interpretation Comme nts TSH, THIRD GENERATION (test code = 2821) 2.690 UIU/ML HEMOGLOBIN [id number] 00:00:00* Test Item Value Reference Range Interpretation Comme nts HEMOGLOBIN A1c (test code = 28247) 5.9 % COMPREHENSIVE METABOLIC [id number] 00:00:00* Test Item Value Reference Range Interpretation Comme nts GLUCOSE (test code = 2217) 104 MG/DL BUN (test code = 2208) 13 MG/DL CREATININE (test code = 2214) 0.75 MG/DL eGFR (2020 CKD-EPI) (test co de = 09165) 90 ML/MIN/1.73 CALC BUN/CREAT (test code = 2235) 17 RATIO SODIUM (test code = 2231) 145 MEQ/L POTASSIUM (test code = 2228) 5.2 MEQ/L CHLORIDE (test code = 2215) 103 MEQ/L CARBON DIOXIDE (test code = 2206) 26 MEQ/L CALCIUM (test code = 2209) 9.6 MG/DL PROTEIN, TOTAL (test code = 2229) 8.2 G/DL ALBUMIN (test code = 2201) 4.8 G/DL CALC GLOBULIN (test code = 2240) 3.4 G/DL CALC A/G RATIO (test code = 2234) 1.4 RATIO BILIRUBIN, TOTAL (test code = 2207) 0.4 MG/DL ALKALINE PHOSPHATASE (test code = 2204) 97 U/L AST (test code = 2218) 18 U/L ALT (test code = 2219) 16 U/L LIPID [id number] 00:00:00* Test Item Value Reference Range Interpretation Comme nts CHOLESTEROL (test code = 2210) 234 MG/DL TRIGLYCERIDES (test code = 2232) 90 MG/DL HDL CHOLESTEROL (test code = 2220) 66 MG/DL CALC LDL CHOL (test code = 2237) 148 MG/DL RISK RATIO LDL/HDL (test cod e = 2238) 2.24 RATIO CBC W/AUTO [id number] 00:00:00* Test Item Value Reference Range Interpretation Comme nts WBC (test code = 1001) 6.4 K/UL RBC (test code = 1002) 5.36 M/UL HEMOGLOBIN (test code = 1003) 15.5 G/DL HEMATOCRIT (test code = 1004) 47.0 % MCV (test code = 1005) 87.7 fL MCH (test code = 1006) 28.9 PG MCHC (test code = 1007) 33.0 G/DL RDW (test code = 1038) 13.1 % NEUTROPHILS (test code = 1008) 66.2 % LYMPHOCYTES (test code = 1010) 23.5 % MONOCYTES (test code = 1011) 7.4 % EOSINOPHILS (test code = 1012) 1.9 % BASOPHILS (test code = 1013) 0.5 % IMMATURE GRANULOCYTES (test code = 1036) 0.5 % NUCLEATED RBCS (test code = 1065) 0.0 /100WBC'S PLATELET COUNT (test code = 1015) 175 K/UL ABSOLUTE NEUTROPHILS (test c ode = 1066) 4.22 K/UL ABSOLUTE LYMPHOCYTES (test c ode = 1067) 1.50 K/UL ABSOLUTE MONOCYTES (test cod e = 1068) 0.47 K/UL ABSOLUTE EOSINOPHILS (test c ode = 1040) 0.12 K/UL ABSOLUTE BASOPHILS (test cod e = 1069) 0.03 K/UL ABS IMMATURE GRANULOCYTES (t est code = 1020) 0.03 K/UL ABS NUCLEATED RBCS (test cod e = 03697) 0.00 K/UL VITAMIN D, 25 [id number] 00:00:00* Test Item Value Reference Range Interpretation Comme nts VITAMIN D, 25 OH (test code = 4958) 21 NG/ML [id number] 00:00:00* Test Item Value Reference Range Interpretation Comme nts TSH, THIRD GENERATION (test code = 2821) 2.690 UIU/ML HEMOGLOBIN [id number] 00:00:00* Test Item Value Reference Range Interpretation Comme nts HEMOGLOBIN A1c (test code = 30623) 5.9 % Notes Date/Time Note Provider Source 2024-01-25 09:23:49 Chief Complaint Patient presents with Follow-up 3 month follow up Ching Mann LVN [facility] Ching Mann LVN [facility] 2023-10-26 09:03:05 Chief Complaint Patient presents with Follow-Up Visit Plantar fascial fibromatosis bilateral foot jean 07/27/23 RADHA Fan Bonita Vo CMA I [facility] 2023-07-27 08:59:41 Chief Complaint Patient presents with Consultation Bilateral foot pain, present for a couple of month, pain comes and goes, no hx of injury. RADHA Fan ET Bonita Vo CMA I [facility] 2023-06-12 09:44:13 Chief Complaint Patient presents with Follow-up Patient is here for follow up back adjustment T [facility] 2023-05-23 09:12:43 Chief Complaint Patient presents with Thyroid Problem Matthieu Singh LVN T [facility] 2023-05-16 09:22:12 Chief Complaint Patient presents with Follow-up Back Pain Neck Pain Diana Borja CMA II [facility] 2023-05-09 13:07:24 Chief Complaint Patient presents with Follow-up Back Pain Neck Pain Diana Borja CMA II [facility] 2023-04-17 11:08:39 Chief Complaint Patient presents with Follow-up Charlotte Kline LVN [facility] 2023-04-04 08:19:00 Chief Complaint Patient presents with Follow-up Back Pain Diana Borja CMA II [place] Borja CMA, II [facility] 2023-03-27 08:23:18 Chief Complaint Patient presents with OTHER Left side sciatica pain [facility]
[2024-04-13] MEDS ORDERED: HYDROCODONE/APAP 5/325 MG TAB ONE (19:12)
--- NOTE | 2024-04-13 20:08 | RAD REPORT ---
EXAMINATION: XR RIGHT ANKLE CLINICAL INDICATION: . PAIN TECHNIQUE:Two view radiograph of the right ankle were obtained. COMPARISON: No prior exam. FINDINGS: Mild soft tissue swelling. No acute fracture or dislocation.
--- NOTE | 2024-04-13 20:30 | EDPHYS ---
Physician Documentation [facility] Name: Latisha Cifuentes Age: 64 yrs Sex: Female : 1960 Arrival Date: 04/13/2024 Time: 18:48 Bed 11 Private MD: ED Physician Farzana Coulter HPI: 04/13 20:28 This 64 yrs old Female presents to ER via Wheelchair with complaints of Fall kb Injury. 20:28 Pt is a 64 year old female who presents for right ankle pain after rolling it while kb walking out of [employer] this morning. States she hasn't been able to bear weight due to pain. Denies any other injuries. Ankle brace in place. Historical: - Allergies: 19:07 PENICILLINS; bm8 - Home Meds: 19:07 atorvastatin 10 mg oral tablet 1 tab daily [Active]; gabapentin 100 mg oral tablet 1 bm8 tab every day at bedtime [Active]; terbinafine HCl 250 mg oral tablet 1 tab daily [Active]; Vitamin D3 25 mcg (1,000 unit) oral tablet 1 tab daily [Active]; Humira 40 mg/0.8 mL subcutaneous Syringe Kit every 14 days [Active]; - PMHx: 19:07 Osteoporosis; Arthritis; Hypercholesterolemia; bm8 - PSHx: 19:07 denies; bm8 - Immunization history:: Adult Immunizations up to date. - Infectious Disease History:: Denies. - Social history:: Smoking status: Patient denies any tobacco usage or history of. ROS: 20:27 Constitutional: As per HPI kb Exam: 20:27 Constitutional: This is a well developed, well nourished patient who is awake, alert, kb and in no acute distress. Head/Face: Normocephalic, atraumatic. ENT: Moist Mucous membranes Cardiovascular: Regular rate Respiratory: Respirations even and unlabored. No increased work of breathing. Talking in full sentences Skin: Warm, dry with normal turgor. Normal color. Neuro: Awake and alert, GCS 15, oriented to person, place, time, and situation. 20:27 Musculoskeletal/extremity: Extremities: grossly normal except: noted in the right ankle: decreased ROM, pain, tenderness, ROM: limited active range of motion due to pain, Circulation is intact in all extremities. Sensation intact. Weight bearing: is unable to bear weight, Vital Signs: 19:06 BP 153 / 99; Pulse 87; Resp 18; Temp 97.3; Pulse Ox 98% ; Weight 81.65 kg; Height 5 ft. bm8 6 in. ; Pain 10/10; 20:00 BP 145 / 65; Pulse 85; Resp 16 S; Pulse Ox 98% on R/A; ha1 19:06 Body Mass Index 29.05 (81.65 kg, 167.64 cm) bm8 19:06 Pain Scale: Adult bm8 MDM: 19:01 Medical Screening Exam initiated kb 20:28 Differential diagnosis: contusion, fracture, sprain, strain. Data reviewed: vital kb signs, nurses notes. Historians other than the Patient: Spouse/Significant Other: spouse. Counseling: I had a detailed discussion with the patient and/or guardian regarding the historical points, exam findings, and any diagnostic results supporting the discharge/admit diagnosis, radiology results, the need for outpatient follow up, a orthopedic surgeon, to return to the emergency department if symptoms worsen or persist or if there are any questions or concerns that arise at home. 04/13 19:09 Order name: Ankle Right 3 View XRAY; Complete Time: 20:26 kb 04/13 20:27 Order name: Crutches; Complete Time: 20:57 kb Administered Medications: 19:20 Drug: HYDROcodone-acetaminophen PO 5 mg-325 mg 1 tabs PO once Route: PO; ha1 19:50 Follow up: Response: No adverse reaction; Pain is decreased; RASS: Alert and Calm (0) ha1 Disposition Summary: 04/13/24 20:29 Discharge Ordered Notes: Location: Home Condition: Stable kb Diagnosis - Sprain of ankle kb Followup: kb - With: Emergency Department - When: As needed - Reason: Worsening of condition Followup: kb - With: Private Physician - When: 2 - 3 days - Reason: Recheck today's complaints, Continuance of care, Re-evaluation by your physician Discharge Instructions: - Discharge Summary Sheet kb - Ankle Sprain, [id number] kb Forms: - Medication Reconciliation Form kb - Antibiotic Education kb - Prescription Opioid Use kb - Patient Portal Instructions kb - Leadership Thank You Letter kb Prescriptions: - Diclofenac Sodium 75 mg Oral tablet, delayed release (enteric coated) - take 1 tablet ORAL route 2 times per day As needed; 30 tablet; Refills: 0, kb Product Selection Permitted Signatures: Dispatcher [employer] Carrol Strickland, [employer]ANC [employer]-Lila Kaufman, RN RN ha1 Spenser Ruiz, RN RN bm8
--- NOTE | 2024-04-13 20:30 | ER ---
Nurse's Notes [facility] Name: Latisha Cifuentes Age: 64 yrs Sex: Female : 1960 Arrival Date: 04/13/2024 Time: 18:48 Bed 11 Private MD: Diagnosis: Sprain of ankle Presentation: 04/13 19:06 Chief complaint: Patient states: tripping coming out of [employer] and rolling right ankle. bm8 Coronavirus screen: Vaccine status: Patient reports receiving the 2nd dose of the covid vaccine. Ebola Screen: Patient negative for fever greater than or equal to 101.5 degrees Fahrenheit, and additional compatible Ebola Virus Disease symptoms Patient denies exposure to infectious person. Patient denies travel to an Ebola-affected area in the 21 days before illness onset. No symptoms or risks identified at this time. Initial Sepsis Screen: Does the patient meet any 2 criteria? No. Patient's initial sepsis screen is negative. Does the patient have a suspected source of infection? No. Patient's initial sepsis screen is negative. Risk Assessment: Do you want to hurt yourself or someone else? Patient reports no desire to harm self or others. Onset of symptoms was April 13, 2024 at 10:00. 19:06 Method Of Arrival: Wheelchair bm8 19:06 Acuity: JOSE LUIS 3 bm8 Triage Assessment: 19:07 General: Appears in no apparent distress. uncomfortable, Behavior is calm, cooperative, bm8 appropriate for age. Pain: Complains of pain in right ankle, lateral aspect of right foot and medial aspect of right foot Pain currently is 10 out of 10 on a pain scale. EENT: No deficits noted. No signs and/or symptoms were reported regarding the EENT system. Neuro: No deficits noted. Level of Consciousness is awake, alert, obeys commands, Oriented to person, place, time, situation, Appropriate for age. Cardiovascular: Denies chest pain, Capillary refill < 3 seconds in bilateral fingers Patient's skin is warm and dry. Respiratory: Airway is patent Trachea midline Respiratory effort is even, unlabored, Respiratory pattern is regular, symmetrical. Musculoskeletal: Circulation, motion, and sensation intact. Range of motion: limited in right ankle Swelling present in right ankle Tenderness present in right ankle Reports pain in right ankle since 1000 this morning. Historical: - Allergies: 19:07 PENICILLINS; bm8 - Home Meds: 19:07 atorvastatin 10 mg oral tablet 1 tab daily [Active]; gabapentin 100 mg oral tablet 1 bm8 tab every day at bedtime [Active]; terbinafine HCl 250 mg oral tablet 1 tab daily [Active]; Vitamin D3 25 mcg (1,000 unit) oral tablet 1 tab daily [Active]; Humira 40 mg/0.8 mL subcutaneous Syringe Kit every 14 days [Active]; - PMHx: 19:07 Osteoporosis; Arthritis; Hypercholesterolemia; bm8 - PSHx: 19:07 denies; bm8 - Immunization history:: Adult Immunizations up to date. - Infectious Disease History:: Denies. - Social history:: Smoking status: Patient denies any tobacco usage or history of. Screenin:10 [facility] ED Fall Risk Assessment (Adult) History of falling in the last 3 months, ha1 including since admission Yes- single mechanical fall (1 pt) Confusion or Disorientation No (0 pts) Intoxicated or Sedated No (0 pts) Impaired Gait Yes (1 pt) Mobility Assist Device Used Yes (1 pt) Altered Elimination No (0 pt) Score/Fall Risk Level 3 or more points = High Risk Oriented to surroundings, Maintained a safe environment, Educated pt \T\ family on fall prevention, incl call for assistance when getting out of bed, Hourly rounding (assess needs \T\ fall precautionary measures) done. Abuse screen: Denies threats or abuse. Denies injuries from another. Nutritional screening: No deficits noted. Tuberculosis screening: No symptoms or risk factors identified. Assessment: 19:10 General: Appears uncomfortable, Behavior is cooperative. Pain: Complains of pain in ha1 right leg and right ankle Pain currently is 9 out of 10 on a pain scale. Quality of pain is described as aching. Neuro: Level of Consciousness is awake, alert, obeys commands, Oriented to person, place, time, situation. Cardiovascular: Capillary refill < 3 seconds Patient's skin is warm and dry. Respiratory: Airway is patent Respiratory effort is even, unlabored, Respiratory pattern is regular, symmetrical. Derm: Skin is pink, warm \T\ dry. Musculoskeletal: Circulation, motion, and sensation intact. Vital Signs: 19:06 BP 153 / 99; Pulse 87; Resp 18; Temp 97.3; Pulse Ox 98% ; Weight 81.65 kg; Height 5 ft. bm8 6 in. ; Pain 10/10; 20:00 BP 145 / 65; Pulse 85; Resp 16 S; Pulse Ox 98% on R/A; ha1 19:06 Body Mass Index 29.05 (81.65 kg, 167.64 cm) bm8 19:06 Pain Scale: Adult 8 ED Course: 18:52 Patient arrived in ED. im 19:00 Carrol Briceño FNP-C is [facility]. kb 19:00 Farzana Coulter MD is Attending Physician. kb 19:07 Triage completed. bm8 19:07 Arm band placed on right wrist. bm8 19:07 Patient has correct armband on for positive identification. Bed in low position. Call ha1 light in reach. Side rails up X 1. Adult w/ patient. 19:07 Provided Education on: PLAN OF CARE . ha1 20:05 Ankle Right 3 View XRAY In Process Unspecified. EDMS 20:25 Lila Sullivan, CARMENZA is Primary Nurse. ha1 20:59 No provider procedures requiring assistance completed. Patient did not have IV access ha1 during this emergency room visit. Administered Medications: 19:20 Drug: HYDROcodone-acetaminophen PO 5 mg-325 mg 1 tabs PO once Route: PO; ha1 19:50 Follow up: Response: No adverse reaction; Pain is decreased; RASS: Alert and Calm (0) ha1 Medication: 21:00 VIS not applicable for this client. ha1 Outcome: 20:29 Discharge ordered by . kb 20:59 Discharged to home via wheelchair, with crutches, with family, ha1 20:59 Condition: stable 20:59 Discharge instructions given to patient, family, Instructed on discharge instructions, follow up and referral plans. medication usage, crutch walking, Demonstrated understanding of instructions, follow-up care, medications, crutch walking, Prescriptions given X 1, 21:00 Patient left the ED. ha1 Signatures: Dispatcher [employer] EDMS Carrol Briceño FNP-C FNP-Ckb Ayala, Heidy, RN RN ha1 Fay Rodriguez Spenser Ruiz RN RN bm8 Corrections: (The following items were deleted from the chart) 20:27 20:27 Response: No adverse reaction; Pain is decreased; RASS: Alert and Calm (0) ha1 ha1
[2024-04-13 21:16] VITALS: TEMP 97.3; O2SAT 98
[2024-04-13 21:17] VITALS: BP 145/65
== END 2024-04-13 21:00 | disposition home or self-care (01) ==
LOC: ER 18:48
DX: S93.401A Sprain of unspecified ligament of right ankle, initial encounter (principal)
CPT/HCPCS: 99283